=== PATIENT | male | born 1990 | race Caucasian/White ===

== ENCOUNTER 2020-02-28 17:56 | Emergency (ER) | payer BC, OTHER ==
[2020-02-28] MEDS ORDERED: Lidocaine 1% 10 ML MDV INJECT ONE (18:09)
--- NOTE | 2020-02-28 18:09 | EDM.PDOC ---
ED HPI GENERAL MEDICAL PROBLEM - General Chief Complaint: Upper Extremity Injury/Pain Stated Complaint: LACERATED FINGER Time Seen by Provider: 02/28/20 17:56 Source of Information: Reports: Patient History Limitations: Reports: No Limitations - History of Present Illness INITIAL COMMENTS - FREE TEXT/NARRATIVE: 30 YO WM PRESENTS TO ER WITH LACERATION TO RIGHT 5TH DIGIT AFTER SMASHING HIS FINGER ON A TRAILER HITCH. PT REPORTS HE WAS PUTTING THE ALUMINUM TRAILER ONTO THE HITCH HE GOT HIS RIGHT PINKY CAUGHT BETWEEN THE TRAILER AND THE HITCH. PT DENIES ANY MOTOR OR SENSORY DEFICITS. PT WITH A 6CM LACERATION TO PALMAR SURFACE OF RIGHT PINKY. Onset: Today Location: Reports: Upper Extremity, Right Quality: Reports: Sharp Severity: Mild Improves with: Reports: Rest Worsens with: Reports: Movement Associated Symptoms: Reports: No Other Symptoms - Related Data Allergies Allergy/AdvReac Type Severity Reaction Status Date / Time cat dander Allergy Swelling Verified 02/28/20 18:21 pollen extracts Allergy Other Verified 02/28/20 18:21 Home Meds: Home Meds Mupirocin Oint [Bactroban Oint] 22 gm TP TID #22 g 02/28/20 [Rx] Review of Systems - Review of Systems Review Of Systems: See Below Constitutional: Reports: No Symptoms Eyes: Reports: No Symptoms Ears: Reports: No Symptoms Nose: Reports: No Symptoms Mouth/Throat: Reports: No Symptoms Respiratory: Reports: No Symptoms Cardiovascular: Reports: No Symptoms GI/Abdominal: Reports: No Symptoms Skin: Reports: Wound (6CM LACERATION TO RIGHT 5TH DIGIT) Neurological: Reports: No Symptoms Psychiatric: Reports: No Symptoms ED EXAM, GENERAL - Physical Exam Exam: See Below Exam Limited By: No Limitations General Appearance: Alert, WD/WN, No Apparent Distress Head: Atraumatic, Normocephalic Neck: Normal Inspection, Supple, Non-Tender, Full Range of Motion Respiratory/Chest: No Respiratory Distress, Lungs Clear, Normal Breath Sounds, No Accessory Muscle Use, Chest Non-Tender Cardiovascular: Normal Peripheral Pulses, Regular Rate, Rhythm, No Edema, No Gallop, No JVD, No Murmur, No Rub GI/Abdominal: Normal Bowel Sounds, Soft, Non-Tender, No Organomegaly, No Distention, No Abnormal Bruit, No Mass Back Exam: Normal Inspection, Full Range of Motion, NT Neurological: Alert, Oriented, CN II-XII Intact, Normal Cognition, Normal Gait, Normal Reflexes, No Motor/Sensory Deficits Psychiatric: Normal Affect, Normal Mood Skin Exam: Warm, Dry, Normal Color, No Rash, Wound/Incision (6CM LACERATION TO PALMAR SURFACE OF RIGHT 5TH DIGIT) Lymphatic: No Adenopathy ED TRAUMA EXTREMITY PROCEDURES - Laceration/Wound Repair Right Hand Lac/Wound Length In cm: 6 Appearance: Superficial Distal NVT: Neuro & Vascular Intact Anesthetic Type: Local Local Anesthesia - Lidocaine (Xylocaine): 1% Plain Local Anesthetic Volume: 5cc Skin Prep: Chlorhexidine (Hibiciens), Saline Exploration/Debridement/Repair: Wound Explored Closed With: Sutures Suture Size: 4-0 (5) Suture Type: Nylon Sterile Dressing Applied: Provider Tetanus Status Addressed: Yes Complications: No Course - Radiology Interpretation Free Text/Narrative:: RIGHT HAND- NAD Departure - Departure Time of Disposition: 18:26 Disposition: Home, Self-Care 01 Preliminary Cause of *Q: Sepsis & Multi System Organ Failure Clinical Impression: Laceration of right hand Qualifiers: Encounter type: initial encounter Foreign body presence: without foreign body Qualified Code(s): S61.411A - Laceration without foreign body of right hand, initial encounter - Discharge Information Prescriptions: Mupirocin Oint [Bactroban Oint] 22 gm TP TID #22 g Instructions: Laceration Care, Adult Forms: ED Department Discharge - Assessment/Plan Assessment:: 1. 6CM LACERATION TO PALMAR SURFACE OF RIGHT 5TH DIGIT Plan: 1. DISCHARGE HOME 2. WOUND CARE INSTRUCTIONS GIVEN 3. BACTROBAN OINTMENT TO WOUND TID X 7 DAYS 4. SUTURE REMOVAL 10-14 DAYS 5. RETURN TO ER FOR WORSENING SYMPTOMS
[2020-02-28] MEDS ORDERED: Lidocaine 1% 20 ML MDV INJECT ONE (18:27)
[2020-02-28] MEDS ORDERED: Diphtheria,Pertussis(Acell),Tetanus Vaccine 0.5 ML SDV IM ONE (18:27)
[2020-02-28] MEDS ORDERED: Mupirocin Oint 22 GM Tube TOP ONE (18:45)
--- NOTE | 2020-02-28 18:47 | CR ---
[id number] RAD/RAD Hand Right 3V Exam: RAD Hand Right 3V Indication:PAIN, LACERATION ON 5TH DIGIT MCP JOINT. Comparison: No prior imaging for comparison. Discussion: Soft tissue laceration along the radial aspect of the 5th digit at the level of the proximal phalanx. No underlying fracture, dislocation, or retained foreign bodies. Remainder of the hand is unremarkable. Impression: As above. Francesco Marrero MD 02/28/20 [id number] Thank you for allowing us to participate in the care of your patient.
== END 2020-02-28 18:51 | disposition home or self-care (01) ==
LOC: KA.ED 17:56
DX: S61.216A Laceration without foreign body of right little finger without damage to nail, initial encounter (principal); Z91.048 Other nonmedicinal substance allergy status; Z23 Encounter for immunization; W23.0XXA Caught, crushed, jammed, or pinched between moving objects, initial encounter
CPT/HCPCS: 12002; 73130-RT; 90471; 90715; 99283; 99283-25; J2001